=== PATIENT | male | born 1980 | race African-American/Black ===

== ENCOUNTER 2020-06-25 18:02 | Emergency (ER) | payer SELFPAY ==
[2020-06-25 18:12] VITALS: BP 130/57; PULSE 77; RESP 18; TEMP 36.2; O2SAT 100; BMI 22.8
--- NOTE | 2020-06-25 18:32 | ED_ITS ---
HPI - Overdose General Chief Complaint: ETOH/Substance Use Stated Complaint: heroin use Source: patient and EMS Mode of arrival: EMS Limitations: no limitations History of Present Illness HPI Narrative: 40-year-old male presents via EMS for heroin abuse. States that he feels he used too much, did not require Narcan. Called 911 himself when he started feeling too drowsy. He does not report any physical complaints, denies suicidal ideation, homicidal ideation, and auditory and visual hallucinations. MD complaint: accidental overdose Onset (ago): hour(s) (Within the hour of arrival) Context: Accidental Overdose: wanted to get high Treatments Prior to Arrival: none Related Data Allergies Allergy/AdvReac Type Severity Reaction Status Date / Time No Known Allergies Allergy Unverified 01/21/20 19:49 [No Known Allergies*] Review of Systems Review of Systems: Constitutional: No Fever, No Chills ENT/Mouth: No sore throat, No Rhinorrhea Eyes: No Eye Pain, No Swelling, No Redness Cardiovascular: No Chest Pain, No SOB Respiratory: No Cough, No Sputum Gastrointestinal: No Nausea, No Vomiting, No Diarrhea, No abdominal Pain Genitourinary: No Dysuria, No Hematuria Musculoskeletal: No joint pain, No Myalgias, No Joint Swelling Skin: No Skin Lesions, No rash Neuro: No Weakness, No Numbness, No Loss of Consciousness, No Dizziness, No Headache Psych: Positive heroin abuse, No Anxiety, No Depression, No SI/HI/AH/VH Heme/Lymph: No Bruising, No Bleeding,No Lymphadenopathy Endocrine: No Polyuria, No Polydipsia Yes all other systems are reviewed and are negative [facility] Past Medical History Attestation statement: The following information was validated with the patient. Source: old records reviewed Social History Social History Advance Directives: No Advance Directives Information Provided: No Physical Exam Vital Signs: Vital Signs: Last Vital Signs Temp 97.2 F 06/25/20 18:12 Pulse 77 06/25/20 18:12 Resp 18 06/25/20 18:12 BP 130/57 L 06/25/20 18:12 Pulse Ox 100 06/25/20 18:12 Body Mass Index 22.8 Appearance: Alert. Oriented X3. Moderate distress. Eyes: Pupils equal, round and reactive to light. ENT: Pharynx normal. Neck: Normal inspection. Neck supple. CVS: Normal heart rate and rhythm. Pulses normal. Respiratory: No respiratory distress. Breath sounds normal. Abdomen: Soft and nontender. Skin: Skin warm and dry. Normal skin color. Normal skin turgor. Extremities: No lower extremity edema. Neuro: No motor deficit. No sensory deficit. Course Course Course Narrative: 40-year-old male presents via EMS for heroin abuse. States that he used 5 bags of heroin, told me that he was warned that this heroin is strong and possibly laced with fentanyl. He called EMS himself, did not require Narcan. 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 Patient is ambulatory, answering questions appropriately, and is requesting to leave. Vital signs are stable and within normal limits, O2 sat 100% on room air. Respiration rate 18 even unlabored. Patient left before discharge instructions, considered elopement. MDM - Overdose Differential Diagnosis Differential diagnosis: Likely drug overdose Medical Records Attestation: I reviewed the patient's medical records. Lab Data Attestation: I reviewed the patient's lab results. Discharge Plan Discharge Clinical Impression: Heroin abuse Patient Disposition: Home, Self-Care Instructions: Opioid Use Disorder (ED) Additional Instructions: Consider detox. Thank you for choosing this emergency department for evaluation. Please follow-up with primary care physician as needed. Return to the emergency department for any new, concerning, or worsening symptoms. Discharge Date/Time: 06/25/20 18:37
== END 2020-06-25 18:37 | disposition left against medical advice (07) ==
PROVIDERS: Emergency Provider Emergency Medicine
DX: F11.10 Opioid abuse, uncomplicated (principal)
CPT/HCPCS: 99283